=== PATIENT | female | born 1985 | race Caucasian/White ===

== ENCOUNTER 2016-06-14 04:42 | Emergency (ER) | payer BC ==
[~2016-06-14] VITALS: Ht 157.5 cm; Wt 97.7 kg
[~2016-06-14 04:42] MED LIST: ADVAIR IH; ALBUTEROL0.09 MG/A1 IH; ALBUTEROL1.25 MG/3 IH; ALLERGY MED; AMOXICILLIN 50500 MG PO; BIRTH CONTROL PILLS; CEPHALEXIN500 M1 PO; IBU800 M1 PO; IBUPROFEN400 MG PO; LORTAB 5/500 501 TAB PO; NAPROSYN PO; PERCOCET 325 MG1 TA2 PO; PREDNISONE20 MG PO; PROCARDIA XL 6060 MG PO
[2016-06-14 04:46] VITALS: BP 139/83; TEMP 97.6
[2016-06-14] MEDS ORDERED: ANTIBIOTIC (04:46)
[2016-06-14] MEDS ORDERED: BACTRIM DS 8001 TAB PO (05:25)
[2016-06-14 05:54] VITALS: PULSE 101
== END 2016-06-14 06:03 | disposition home or self-care (01) ==
LOC: COL.ER 04:42
DX: H66.91 Otitis media, unspecified, right ear (principal)
CPT/HCPCS: J0696

== ENCOUNTER 2017-05-08 16:51 | Emergency (ER) | payer BC ==
[~2017-05-08] VITALS: Ht 157.5 cm; Wt 95.5 kg
[~2017-05-08 16:51] MED LIST changes: +ANTIBIOTIC; +BACTRIM DS 8001 TAB PO
[2017-05-08 17:05] VITALS: BP 134/82; PULSE 78; TEMP 98
[2017-05-08] MEDS ORDERED: TYLENOL W/COD1 UDTAB PO (17:10)
[2017-05-08] MEDS ORDERED: AMOXICILLIN875 MG PO (17:10)
== END 2017-05-08 18:25 | disposition home or self-care (01) ==
LOC: COL.ER 16:51
DX: K04.7 Periapical abscess without sinus (principal)